=== PATIENT | female | born 1945 | race Caucasian/White ===

== ENCOUNTER 2020-11-18 10:23 | Inpatient (IN) | payer OTHER ==
[2020-11-18] MEDS ORDERED: DEXAMETHASONE SOD PHOSPHATE 10 MG/1 ML VIAL IVPUSH ONE (11:33)
[2020-11-18] MEDS ORDERED: ZINC SULFATE 220 MG CAPSULE (FP) PO ONE (11:34)
[2020-11-18] MEDS ORDERED: CASIRIVIMAB (REGN10933) 1,200 MG, IMDEVIMAB (REGN10987) 1,200 MG in SODIUM CHLORIDE 250 ML IVPB ONE ×2 (11:34→14:54)
[2020-11-18 13:07] LABS: VENOUS BASE EXCESS -0.1 mmol/L (-2-2); VENOUS O2 SATURATION 53.2 % (70-80); VENOUS PCO2 46.4 mmHg (38-52); VENOUS PH 7.363 (7.310-7.410)
[2020-11-18 13:08] LABS: BASO % 0.2 % (0-2.0); EOS % 1.3 % (0-4.5); HEMATOCRIT 43.5 % (32.4-45.2); HEMOGLOBIN 14.6 GM/dL (10.7-15.3); LYMPH % 7.7 % (8-40); MCH 38.7 pg (25.7-33.7); MCHC 33.6 g/dl (32.0-36.0); MEAN CELL VOLUME 115.3 fl (80-96); MONO % 5.2 % (3.8-10.2); NEUT % 85.6 % (42.8-82.8); PLATELET COUNT 165 K/MM3 (134-434); RBC 3.77 M/mm3 (3.60-5.2); RDW 14.2 % (11.6-15.6); WHITE BLOOD COUNT 4.2 K/mm3 (4.0-10.0)
[2020-11-18 13:17] LABS: INR 1.08 (0.83-1.09); PROTHROMBIN TIME (PATIENT) 13.3 SEC (9.7-13.0)
[2020-11-18 13:19] LABS: ACTIVATED PTT 28.7 SECONDS (25.2-36.5)
[2020-11-18] MEDS ORDERED: DEXAMETHASONE SOD PHOSPHATE 10 MG/1 ML VIAL ONE (13:33)
[2020-11-18] MEDS ORDERED: ASCORBIC ACID 500 MG TABLET (FP) ONE (13:33)
[2020-11-18] MEDS ORDERED: ZINC SULFATE 220 MG CAPSULE (FP) ONE (13:33)
[2020-11-18 13:40] LABS: CHLORIDE 102 mmol/L (98-107); POTASSIUM 3.2 mmol/L (3.5-5.1); SODIUM 138 mmol/L (136-145)
[2020-11-18 13:41] LABS: ALBUMIN 2.9 g/dl (3.4-5.0); ANION GAP 10 MMOL/L (8-16); BLOOD UREA NITROGEN 15.9 mg/dL (7-18); CALCIUM 7.8 mg/dL (8.5-10.1); CO2 26 mmol/L (21-32); GLUCOSE,RANDOM 105 mg/dL (74-106)
[2020-11-18 13:44] LABS: CREATININE 0.9 mg/dL (0.55-1.3); SGPT/ALT 56 U/L (13-61)
[2020-11-18 13:45] LABS: SGOT/AST 28 U/L (15-37)
[2020-11-18 13:46] LABS: BILIRUBIN,TOTAL 1.2 mg/dL (0.2-1); LDH 309 U/L (84-246); TOT PROT 6.3 g/dl (6.4-8.2)
[2020-11-18 13:47] LABS: ALK PHOS 118 U/L (45-117)
[2020-11-18] MEDS: ASCORBIC ACID 500 MG TABLET (FP) PO SCH (13:53)
[2020-11-18] MEDS ORDERED: POTASSIUM CHLORIDE ORAL LIQUID 20 MEQ/15 ML PO ONE (13:58)
[2020-11-18 14:46] LABS: ANISOCYTOSIS 1+; MACROCYTOSIS 2+; PLATELET ESTIMATE DECREASED
[2020-11-18] MEDS: DEXAMETHASONE SOD PHOSPHATE 4 MG/1 ML VIAL IVPUSH SCH (16:56)
[2020-11-18] MEDS ORDERED: REMDESIVIR 200 MG in SODIUM CHLORIDE 210 ML IVPB ONE (17:00)
[2020-11-18] MEDS ORDERED: POTASSIUM CHLORIDE ORAL LIQUID 20 MEQ/15 ML ONE (17:04)
[2020-11-18] MEDS ORDERED: CEFTRIAXONE 1 GM/50 ML BAG ONE (17:05)
[2020-11-18] MEDS: DEXTROSE 5%-0.45% SALINE 1,000 ML IV SCH (17:36)
[2020-11-18] MEDS: CEFTRIAXONE 1 GM in DEXTROSE 5%-WATER - 50 ML IVPB SCH (17:36)
[2020-11-18 23:53] LABS: POTASSIUM 4.3 mmol/L (3.5-5.1)
[2020-11-18 23:55] LABS: ALBUMIN 2.7 g/dl (3.4-5.0); CALCIUM 7.8 mg/dL (8.5-10.1)
[2020-11-18 23:56] LABS: BLOOD UREA NITROGEN 15.2 mg/dL (7-18)
[2020-11-18 23:59] LABS: CREATININE 0.7 mg/dL (0.55-1.3)
[2020-11-19] LABS: BILIRUBIN,TOTAL 0.7 mg/dL (0.2-1); TOT PROT 6.1 g/dl (6.4-8.2)
[2020-11-19 01:11] VITALS: BMI 19.8
[2020-11-19] MEDS ORDERED: guaiFENesin 200 MG/10 ML 10 ML UNIT-DOSE CUPS PO ONE (01:30)
[2020-11-19] MEDS ORDERED: PT OWN MED DRAWER 7, Y5N ONE ×2 (09:38→13:26)
[2020-11-19] MEDS: ZINC SULFATE 220 MG CAPSULE (FP) PO SCH (09:46)
[2020-11-19] MEDS: ASCORBIC ACID 500 MG TABLET (FP) PO SCH ×2 (09:47→13:32)
[2020-11-19] MEDS: DEXAMETHASONE SOD PHOSPHATE 4 MG/1 ML VIAL IVPUSH SCH (09:47)
[2020-11-19] MEDS: CHOLECALCIFEROL (VIT D3) 1,000 UNIT (25 MCG) TABLET PO SCH (09:47)
[2020-11-19] MEDS: ENOXAPARIN NA (PORCINE) 40 MG/0.4 ML DISP.SYRIN SQ SCH (09:47)
[2020-11-19] MEDS: CEFTRIAXONE 1 GM in DEXTROSE 5%-WATER - 50 ML IVPB SCH (09:47)
[2020-11-19] MEDS ORDERED: ALPRAZolam 1 MG TABLET PO PRN (10:40)
[2020-11-19] MEDS: guaiFENesin/CODEINE 5 ML UNIT-DOSE CUPS PO PRN (13:31)
[2020-11-19] MEDS: HYDROXYUREA 500 MG CAPSULE PO SCH (13:32)
[2020-11-19] MEDS: REMDESIVIR 100 MG in SODIUM CHLORIDE 230 ML IVPB SCH (13:32)
[2020-11-19] MEDS ORDERED: ALPRAZolam 0.25 MG TABLET PO PRN (22:16)
[2020-11-19] MEDS: ROSUVASTATIN CA 5 MG TABLET (FP) PO SCH (22:27)
[2020-11-20] MEDS: DEXTROSE 5%-0.45% SALINE 1,000 ML IV SCH ×3 (01:28→21:02)
[2020-11-20 09:18] LABS: BASO % 0.4 % (0-2.0); EOS % 1.6 % (0-4.5); HEMATOCRIT 38.4 % (32.4-45.2); LYMPH % 13.2 % (8-40); MCH 38.8 pg (25.7-33.7); MCHC 33.7 g/dl (32.0-36.0); MEAN PLT VOLUME 7.4 fl (7.5-11.1); MONO % 7.5 % (3.8-10.2); NEUT % 77.3 % (42.8-82.8); PLATELET COUNT 284 K/MM3 (134-434); RBC 3.34 M/mm3 (3.60-5.2); RDW 14.1 % (11.6-15.6); WHITE BLOOD COUNT 4.9 K/mm3 (4.0-10.0)
[2020-11-20 09:33] LABS: POTASSIUM 4.3 mmol/L (3.5-5.1)
[2020-11-20 09:39] LABS: CALCIUM 7.7 mg/dL (8.5-10.1)
[2020-11-20 09:40] LABS: ALBUMIN 2.6 g/dl (3.4-5.0); MAGNESIUM 2.3 mg/dL (1.8-2.4)
[2020-11-20 09:43] LABS: CREATININE 0.7 mg/dL (0.55-1.3); PHOSPHOROUS 2.5 mg/dL (2.5-4.9)
[2020-11-20 09:44] LABS: BILIRUBIN,TOTAL 1.1 mg/dL (0.2-1)
[2020-11-20 09:45] LABS: TOT PROT 5.7 g/dl (6.4-8.2)
[2020-11-20] MEDS ORDERED: PT OWN MED DRAWER 7, Y5N ONE ×2 (09:52→09:57)
[2020-11-20] MEDS: guaiFENesin/CODEINE 5 ML UNIT-DOSE CUPS PO PRN ×2 (09:53→21:50)
[2020-11-20] MEDS: CEFTRIAXONE 1 GM in DEXTROSE 5%-WATER - 50 ML IVPB SCH (09:53)
[2020-11-20] MEDS: DEXAMETHASONE SOD PHOSPHATE 4 MG/1 ML VIAL IVPUSH SCH (09:53)
[2020-11-20] MEDS: ENOXAPARIN NA (PORCINE) 40 MG/0.4 ML DISP.SYRIN SQ SCH (09:53)
[2020-11-20] MEDS: ZINC SULFATE 220 MG CAPSULE (FP) PO SCH (09:53)
[2020-11-20] MEDS: ASCORBIC ACID 500 MG TABLET (FP) PO SCH ×2 (09:54)
[2020-11-20] MEDS: CHOLECALCIFEROL (VIT D3) 1,000 UNIT (25 MCG) TABLET PO SCH (09:54)
[2020-11-20] MEDS: ACETAMINOPHEN 325 MG TABLET (FP) PO PRN (09:55)
[2020-11-20] MEDS: HYDROXYUREA 500 MG CAPSULE PO SCH (09:56)
[2020-11-20] MEDS: FAMOTIDINE 10 MG TABLET PO SCH (10:30)
[2020-11-20] MEDS: REMDESIVIR 100 MG in SODIUM CHLORIDE 230 ML IVPB SCH (15:12)
[2020-11-20] MEDS: ROSUVASTATIN CA 5 MG TABLET (FP) PO SCH (21:50)
[2020-11-21 09:18] LABS: HEMATOCRIT 36.6 % (32.4-45.2); HEMOGLOBIN 12.4 GM/dL (10.7-15.3); MEAN CELL VOLUME 114.8 fl (80-96); MEAN PLT VOLUME 7.4 fl (7.5-11.1); PLATELET COUNT 312 K/MM3 (134-434); RBC 3.19 M/mm3 (3.60-5.2); RDW 14.1 % (11.6-15.6); WHITE BLOOD COUNT 5.6 K/mm3 (4.0-10.0)
[2020-11-21 09:41] LABS: POTASSIUM 3.7 mmol/L (3.5-5.1)
[2020-11-21] MEDS ORDERED: DEXTROSE 5%-WATER - 50 ML IVPB ONE (09:46)
[2020-11-21] MEDS ORDERED: cefTRIAXone SODIUM 1 GM VIAL ONE (09:46)
[2020-11-21] MEDS: guaiFENesin/CODEINE 5 ML UNIT-DOSE CUPS PO PRN (09:47)
[2020-11-21] MEDS: DEXAMETHASONE SOD PHOSPHATE 4 MG/1 ML VIAL IVPUSH SCH (09:47)
[2020-11-21] MEDS: ENOXAPARIN NA (PORCINE) 40 MG/0.4 ML DISP.SYRIN SQ SCH (09:47)
[2020-11-21] MEDS: CEFTRIAXONE 1 GM in DEXTROSE 5%-WATER - 50 ML IVPB SCH (09:47)
[2020-11-21] MEDS: ASCORBIC ACID 500 MG TABLET (FP) PO SCH ×2 (09:48→09:50)
[2020-11-21] MEDS: FAMOTIDINE 10 MG TABLET PO SCH (09:48)
[2020-11-21] MEDS: ACETAMINOPHEN 325 MG TABLET (FP) PO PRN (09:48)
[2020-11-21] MEDS: ZINC SULFATE 220 MG CAPSULE (FP) PO SCH (09:48)
[2020-11-21] MEDS: HYDROXYUREA 500 MG CAPSULE PO SCH (09:49)
[2020-11-21] MEDS ORDERED: PT OWN MED DRAWER 7, Y5N ONE (09:49)
[2020-11-21] MEDS: CHOLECALCIFEROL (VIT D3) 1,000 UNIT (25 MCG) TABLET PO SCH (09:50)
[2020-11-21 09:56] LABS: ALBUMIN 2.5 g/dl (3.4-5.0); BLOOD UREA NITROGEN 15.9 mg/dL (7-18); CALCIUM 7.6 mg/dL (8.5-10.1)
[2020-11-21 10:00] LABS: CREATININE 0.7 mg/dL (0.55-1.3)
[2020-11-21 10:01] LABS: BILIRUBIN,TOTAL 0.5 mg/dL (0.2-1); TOT PROT 5.3 g/dl (6.4-8.2)
[2020-11-21] MEDS: REMDESIVIR 100 MG in SODIUM CHLORIDE 230 ML IVPB SCH (15:25)
[2020-11-21] MEDS: ALPRAZolam 0.25 MG TABLET PO PRN (22:22)
[2020-11-21] MEDS: ROSUVASTATIN CA 5 MG TABLET (FP) PO SCH (22:22)
[2020-11-22] MEDS ORDERED: cefTRIAXone SODIUM 1 GM VIAL ONE (10:20)
[2020-11-22] MEDS ORDERED: DEXTROSE 5%-WATER - 50 ML IVPB ONE (10:21)
[2020-11-22] MEDS: CEFTRIAXONE 1 GM in DEXTROSE 5%-WATER - 50 ML IVPB SCH (10:26)
[2020-11-22] MEDS: ENOXAPARIN NA (PORCINE) 40 MG/0.4 ML DISP.SYRIN SQ SCH (10:26)
[2020-11-22] MEDS: ZINC SULFATE 220 MG CAPSULE (FP) PO SCH (10:27)
[2020-11-22] MEDS: ASCORBIC ACID 500 MG TABLET (FP) PO SCH ×2 (10:27→10:31)
[2020-11-22] MEDS: guaiFENesin/CODEINE 5 ML UNIT-DOSE CUPS PO PRN ×2 (10:27→21:22)
[2020-11-22] MEDS: DEXAMETHASONE SOD PHOSPHATE 4 MG/1 ML VIAL IVPUSH SCH (10:27)
[2020-11-22] MEDS: FAMOTIDINE 10 MG TABLET PO SCH (10:27)
[2020-11-22] MEDS ORDERED: PT OWN MED DRAWER 7, Y5N ONE (10:31)
[2020-11-22] MEDS: HYDROXYUREA 500 MG CAPSULE PO SCH (10:31)
[2020-11-22] MEDS: CHOLECALCIFEROL (VIT D3) 1,000 UNIT (25 MCG) TABLET PO SCH (10:31)
[2020-11-22] MEDS: REMDESIVIR 100 MG in SODIUM CHLORIDE 230 ML IVPB SCH (15:23)
[2020-11-22] MEDS: ROSUVASTATIN CA 5 MG TABLET (FP) PO SCH (21:22)
[2020-11-22] MEDS: ALPRAZolam 0.25 MG TABLET PO PRN (21:22)
[2020-11-23] MEDS: CHOLECALCIFEROL (VIT D3) 1,000 UNIT (25 MCG) TABLET PO SCH (10:44)
[2020-11-23] MEDS: HYDROXYUREA 500 MG CAPSULE PO SCH (10:44)
[2020-11-23] MEDS: ASCORBIC ACID 500 MG TABLET (FP) PO SCH ×2 (10:44→10:45)
[2020-11-23] MEDS: FAMOTIDINE 10 MG TABLET PO SCH (10:44)
[2020-11-23] MEDS: ZINC SULFATE 220 MG CAPSULE (FP) PO SCH (10:44)
[2020-11-23] MEDS: ENOXAPARIN NA (PORCINE) 40 MG/0.4 ML DISP.SYRIN SQ SCH (10:45)
[2020-11-23] MEDS: DEXAMETHASONE SOD PHOSPHATE 4 MG/1 ML VIAL IVPUSH SCH (10:45)
[2020-11-23] MEDS: ROSUVASTATIN CA 5 MG TABLET (FP) PO SCH (22:06)
[2020-11-23] MEDS: ALPRAZolam 0.25 MG TABLET PO PRN (22:07)
[2020-11-23] MEDS: guaiFENesin/CODEINE 5 ML UNIT-DOSE CUPS PO PRN (22:45)
[2020-11-24 05:30] VITALS: TEMP 98.3
[2020-11-24] MEDS ORDERED: PT OWN MED DRAWER 7, Y5N ONE (09:10)
[2020-11-24] MEDS: HYDROXYUREA 500 MG CAPSULE PO SCH (09:45)
[2020-11-24] MEDS: FAMOTIDINE 10 MG TABLET PO SCH (09:45)
[2020-11-24] MEDS: CHOLECALCIFEROL (VIT D3) 1,000 UNIT (25 MCG) TABLET PO SCH (09:46)
[2020-11-24] MEDS: ENOXAPARIN NA (PORCINE) 40 MG/0.4 ML DISP.SYRIN SQ SCH (09:46)
[2020-11-24] MEDS: ASCORBIC ACID 500 MG TABLET (FP) PO SCH (09:46)
[2020-11-24] MEDS: ZINC SULFATE 220 MG CAPSULE (FP) PO SCH (09:46)
[2020-11-24] MEDS ORDERED: DEXAMETHASONE 4 MG TABLET (FP) PO SCH (10:00)
[2020-11-24 11:33] VITALS: BP 132/78; PULSE 75
== END 2020-11-24 11:48 | disposition home health service (06) | DRG 177 ==
LOC: JER 10:23 → JERBED 13:12 → J6S 23:52
PROVIDERS: ADMIT Internal Medicine; ATTEND Internal Medicine
PROC: XW033E5 Introduction of Remdesivir Anti-infective into Peripheral Vein, Percutaneous Approach, New Technology Group 5 (ICD-10-PCS; 2020-11-18)
PROC: XW13325 Transfusion of Convalescent Plasma (Nonautologous) into Peripheral Vein, Percutaneous Approach, New Technology Group 5 (ICD-10-PCS; principal; 2020-11-20)
DX: U07.1 COVID-19 (principal); J12.82 Pneumonia due to coronavirus disease 2019; J96.01 Acute respiratory failure with hypoxia; I10 Essential (primary) hypertension; E78.5 Hyperlipidemia, unspecified; D75.1 Secondary polycythemia; F41.9 Anxiety disorder, unspecified; Z85.6 Personal history of leukemia
CPT/HCPCS: 36415; 36430; 71046-TC-FY; 80053; 82550; 82728; 82803; 83615; 83735; 84100; 84484; 85025; 85027; 85379; 85610; 85730; 86140; 86769; 86850; 86900; 86901; 87804; 93005; 93010; 94010; 94761; 97116-GP; 97162-GP; 99285-25; C9399; C9803; J1100; J8999; P9017; U0003